=== PATIENT | female | born 1935 | race Caucasian/White ===

== ENCOUNTER 2017-04-23 12:11 | Outpatient (CLI) | payer MEDICARE, OTHER ==
--- NOTE | 2017-04-23 13:33 | CT ---
CT ANGIOGRAM THORAX WITH IV CONTRAST AND 3D RECONSTRUCTIONS: DATE: 04/23/17. HISTORY: Giant cell arteritis. Evaluate for aneurysm. COMPARISON: None available. FINDINGS: There is atherosclerotic plaque seen within the coronary arteries as well as involving the thoracic a deloris and origin of the great vessels. The thoracic aorta is normal in caliber without evidence of an aortic dissection. There is a normal arrangement of the great vessels at the aortic arch with mild atherosclerotic calcifications involving the origin and proximal left subclavian artery. The visuali zed proximal abdominal aorta is normal in caliber. There is at least mild narrowing involving the or igin of the right renal artery as well as proximal left renal artery due to calcified atherosclerotic plaque. The heart is mildly enlarged. There is dependent atelectasis bilaterally. Lungs are otherwise clear. There is no evidence of lymphadenopathy. Post cholecystectomy changes are seen. The liver, spleen, pancreas, and bilateral adrenal glands demonstrate a normal CT appearance for ronda rial phase of imaging. A few tiny subcentimeter too small to characterize hypodense lesions are seen in the superior pole of each kidney which are difficult to further characterize. Degenerative changes are seen throughout the thoracic spine. IMPRESSION: 1. Atherosclerotic calcifications and plaque within the thoracic aorta, but no thoracic aortic aneur ysm or dissection is seen. There is a normal arrangement of the great vessels at the aortic arch wit h mild atherosclerotic narrowing involving the origin and proximal left subclavian artery. 2. Mild cardiomegaly. 3. No CT evidence of a pulmonary embolus. POS: [facility]
[2017-04-23] MEDS ORDERED: Iopamidol 370 76% 100 ML VIAL ONE (16:42)
== END 2017-04-23 12:12 | disposition home or self-care (01) ==
LOC: CT 12:11
PROVIDERS: ATTEND Internal Medicine Cardiovascular Disease
DX: M31.6 Other giant cell arteritis (principal); I51.7 Cardiomegaly; I70.0 Atherosclerosis of aorta
CPT/HCPCS: 71275

== ENCOUNTER 2017-10-25 16:02 | Outpatient (CLI) | payer MEDICARE, OTHER | END 2017-10-25 16:03 | disposition home or self-care (01) | LOC: BICMAMMO 16:02 | PROVIDERS: ATTEND Obstetrics & Gynecology | DX: Z12.31 Encounter for screening mammogram for malignant neoplasm of breast (principal) | CPT/HCPCS: 77063; 77067 ==

== ENCOUNTER 2018-03-15 12:03 | Outpatient (CLI) | payer MEDICARE, OTHER ==
--- NOTE | 2018-03-15 13:50 | RAD ---
CERVICAL SPINE EIGHT VIEWS: 03/15/2018 HISTORY: Degenerative cervical spinal stenosis. FINDINGS: C1 to the cervicothoracic junction is seen on the flexion and extension views of the lumbar spine. T here are prominent degenerative changes at the C5-C6 and to a lesser degree the C6-C7 levels with susie rowing of the intervertebral disk spaces and osteophyte formation. There is mild anterolisthesis of C4 on C5, measuring approximately 3 mm on neutral and flexion views. However, the degree of anteroli sthesis does appear to improve on extension, measuring approximately 1 to 2 mm. There does appear to be narrowing of the left neural foramen, at the C6-C7 level, on the left, noted on the oblique views , narrow due to bony encroachment. Vascular calcifications are seen in the thoracic aorta. Portions of the odontoid are incompletely im aged but appear to have a normal appearance on lateral views. Prevertebral soft tissues are within normal limits. Vascular calcifications overly the left aspect of the neck. IMPRESSION: Degenerative changes in the cervical spine, as described above. There is mild anterolisthesis of C4 on C5, which does appear to mildly correct on the flexion compared to extension views. POS: [facility]
--- NOTE | 2018-03-15 14:13 | MRI ---
MRI OF THE LUMBAR SPINE WITHOUT CONTRAST: Comparison: None. History: Lumbar neurogenic claudication with low back pain and bilateral buttock pain for years. Technique: Multiplanar, multisequence MR images were obtained of the lumbar spine without contrast. FINDINGS: Generalized disc desiccation is seen. Vertebral bodies demonstrate normal height without fracture or subluxation. The conus medullaris terminates normally at T12-L1. There are T2 foci in the bilateral k idneys which represent cysts. The other prevertebral and spinal soft tissues are unremarkable. T12-L1: A minimal generalized disc bulge is seen. No posterior facet arthrosis. No neural foraminal o r central canal stenosis. L1-2: A moderate disc osteophyte complex is seen. Mild bilateral posterior facet arthrosis. Mild cent ral canal stenosis. Moderate left and mild right neural foraminal stenosis. L2-3: A small disc osteophyte complex is seen. Mild bilateral posterior facet arthrosis. No central c anal stenosis. Moderate bilateral neural foraminal stenosis. L3-4: A small disc osteophyte complex is seen. Moderate bilateral posterior facet arthrosis. No centr al canal stenosis. No neural foraminal stenosis. L4-5: A moderate disc osteophyte complex is seen. Mild bilateral posterior facet arthrosis. No centra l canal stenosis. Moderate right and moderate to severe left neural foraminal stenosis. L5-S1: A small joint concentric disc bulge is seen. Moderate bilateral posterior facet arthrosis. No central canal stenosis. Mild bilateral neural foraminal stenosis. IMPRESSION: 1. Degenerative changes of the lumbar spine as above. POS: [facility]
--- NOTE | 2018-03-15 16:01 | MRI ---
MRI OF THE CERVICAL SPINE WITHOUT CONTRAST 03/15/18 COMPARISON: None. HISTORY: Cervical stenosis. Cervical pain that radiates down the arms for weeks. TECHNIQUE: Multiplanar and multisequence MR images were obtained of the cervical spine without contrast. FINDINGS: This exam is limited secondary to motion artifact. Generalized disc desiccation is seen. There is str aightening of the normal cervical lordosis. The vertebral bodies demonstrate normal height without e vidence of subluxation. The visualized cord demonstrates a normal signal throughout. The craniocervical junction is unremark able. The prevertebral and paraspinal soft tissues are unremarkable C2-3: Unremarkable. C3-4: Unremarkable. C4-5: A small disc osteophyte complex is seen. Moderate bilateral posterior facet arthrosis. Mild gina tral canal stenosis. Moderate bilateral neural foraminal stenosis. C5-6: A moderate disc osteophyte complex is seen. Mild bilateral posterior facet arthrosis. Mild cent ral canal stenosis. Moderate bilateral neural foraminal stenosis. C6-7: A small disc osteophyte complex is seen. No posterior facet arthrosis. Mild central canal steno sis. Mild to moderate bilateral neural foraminal stenosis. C7-T1: Unremarkable. IMPRESSION: Degenerative changes of the cervical spine as above. POS: [facility]
== END 2018-03-15 12:04 | disposition home or self-care (01) ==
LOC: BICMRI 12:03
PROVIDERS: ATTEND Anesthesiology Pain Medicine
DX: M48.062 Spinal stenosis, lumbar region with neurogenic claudication (principal); M48.02 Spinal stenosis, cervical region; M47.812 Spondylosis without myelopathy or radiculopathy, cervical region; M43.12 Spondylolisthesis, cervical region; M47.816 Spondylosis without myelopathy or radiculopathy, lumbar region
CPT/HCPCS: 72052; 72141; 72148

== ENCOUNTER 2018-07-12 13:41 | Outpatient (CLI) | payer MEDICARE, OTHER ==
--- NOTE | 2018-07-12 14:51 | ULT ---
Exam: Bilateral renal ultrasound complete: HISTORY: Recurrent urinary tract infections, incontinence COMPARISON: None FINDINGS: Right kidney: 11.0 x 6.2 x 6.2 cm Left kidney: 11.2 x 5.6 x 5.1 cm No renal hydronephrosis. No evidence for abnormal perinephric process. 0.9 x 1.2 cm right upper pole renal cyst. Unremarkable appearing bladder. Several small nonspecific echogenic foci noted bilaterally without significant shadowing. IMPRESSION: Small right renal cyst. No hydronephrosis or other acute process.
== END 2018-07-12 13:42 | disposition home or self-care (01) ==
LOC: BICULT 13:41
PROVIDERS: ATTEND Urology
DX: N39.41 Urge incontinence (principal); N28.1 Cyst of kidney, acquired; Z87.440 Personal history of urinary (tract) infections
CPT/HCPCS: 76770

== ENCOUNTER 2018-12-19 13:18 | Outpatient (CLI) | payer MEDICARE, OTHER ==
--- NOTE | 2018-12-19 16:37 | MMO ---
Bilateral MAMMO Bilat Screen [facility]. CLINICAL HISTORY: Patient is 83 years old and is seen for screening. The patient has no family history of breast cancer. The patient has no personal history of cancer. VIEWS: The views performed were: bilateral craniocaudal with tomosynthesis and bilateral mediolateral oblique with tomosynthesis. FILMS COMPARED: The present examination has been compared to prior imaging studies performed at [facility] on 07/19/2014, 07/24/2015, 09/03/2016 and 10/25/2017. This study has been interpreted with the assistance of computer-aided detection. MAMMOGRAM FINDINGS: There are scattered fibroglandular densities. There are stable benign appearing calcifications seen in both breasts. There are no suspicious masses, calcifications or areas of architectural distortion. There are no suspicious masses, suspicious calcifications, or new areas of architectural distortion. IMPRESSION: THERE IS NO MAMMOGRAPHIC EVIDENCE OF MALIGNANCY. A ROUTINE FOLLOW-UP MAMMOGRAM IN 1 YEAR IS RECOMMENDED. THE RESULTS OF THIS EXAM WERE SENT TO THE PATIENT. ACR BI-RADS Category 2 - Benign finding MAMMOGRAPHY NOTE: 1. A negative mammogram report should not delay a biopsy if a dominant of clinically suspicious mass is present. 2. Approximately 10% to 15% of breast cancers are not detected by mammography. 3. Adenosis and dense breasts may obscure an underlying neoplasm. Reported by: AMRIT HORAN MD Electonically Signed: [id number]
== END 2018-12-19 13:19 | disposition home or self-care (01) ==
LOC: BICMAMMO 13:18
DX: Z12.31 Encounter for screening mammogram for malignant neoplasm of breast (principal)
CPT/HCPCS: 77063; 77067

== ENCOUNTER 2020-06-03 16:33 | Inpatient (IN) | payer MEDICARE, OTHER ==
[~2020-06-03 16:33] MED LIST: Iopamidol-370 76% 500 ML 1 ML ONE
[2020-06-03 17:27] LABS: INR-International Normal Ratio 1.2; PTT 31.2 sec (22.9-36.1); Prothrombin Time 15.5 sec (12.0-14.7)
[2020-06-03 17:36] LABS: ALT (SGPT) 25 U/L (8-55); AST (SGOT) 27 U/L (5-34); Albumin 3.5 g/dL (3.4-4.8); Alkaline Phosphatase 87 U/L (40-110); Anion Gap 15 mmol/L (10-20); BUN (Urea Nitrogen) 14 mg/dL (9.8-20.1); Bilirubin, Total 0.6 mg/dL (0.2-1.2); Calc. Creatinine Clearance 0 mL/min (70-130); Calcium 9.4 mg/dL (7.8-10.44); Carbon Dioxide 25 mmol/L (23-31); Chloride 101 mmol/L (98-107); Globulin 4.3 g/dL (2.4-3.5); Glucose 143 mg/dL (83-110); Potassium 4.6 mmol/L (3.5-5.1); Protein, Total 7.8 g/dL (5.8-8.1); Sodium 136 mmol/L (136-145)
[2020-06-03 17:43] LABS: Anisocytosis SLIGHT = 6-15 cells (100X) (0-5/hpf); Band 14 % (5-11); Hemoglobin 12.2 g/dL (12.0-16.0); Large Platelets SLIGHT; Lymphocytes 11 % (21-51); MDiff Complete? YES; Mean Corpuscular HGB CONC 32.3 g/dL (32.0-36.0); Mean Corpuscular Hemoglobin 30.5 pg (27.0-31.0); Mean Corpuscular Volume 94.3 fL (78.0-98.0); Mean Platelet Volume 10.8 fL (7.4-10.4); Monocytes 5 % (0-10); Myelocyte 8 % (0-0); Neutrophil 59 % (42-75); Platelet Count 127 thou/uL (130-400); Platelet Morphology Comment Appears Decreased; RBC Distribution Width 14.2 % (11.5-14.5); Reactive Lymphocytes 3 % (0-10); Red Blood Cell (RBC) Count 4.01 mill/uL (4.20-5.40); White Blood Cell (WBC) Count 22.9 thou/uL (4.8-10.8)
[2020-06-03] MEDS ORDERED: cefTRIAXone\\ROCEPHIN 2 GM VIAL ONE (18:00)
[2020-06-03 18:07] LABS: Squamous Epithelial None Seen HPF (0-3)
[2020-06-03 18:19] LABS: Bacteria/HPF 1+ HPF (None Seen); Bilirubin Unable to Interpret (Negative); Clarity CLEAR (Clear); Glucose, Urine (Dipstick) Unable to Interpret mg/dL (Negative); Ketone, Urine Unable to Interpret mg/dL (Negative); Leukocyte Unable to Interpret Leu/uL (Negative); Nitrite Unable to Interpret (Negative); Protein, Urine (Dipstick) Unable to Interpret mg/dL (Neg-Trace); Specific Gravity, Urine 1.011 (1.002-1.036); Urobilinogen UNABLE TO INTERPRET mg/dL (Less than 2)
[2020-06-03 18:20] LABS: Blood, Urine Unable to Interpret (Negative)
[2020-06-03] MEDS ORDERED: Acetaminophen 325 MG TAB PO PRN (20:24)
[2020-06-03] MEDS ORDERED: Ondansetron PF 4 MG/2 ML Vial IVP PRN ×2 (20:24→21:51)
[2020-06-03] MEDS ORDERED: Ondansetron ODT 4 MG TAB PO PRN ×2 (20:24→21:50)
[2020-06-03] MEDS ORDERED: Sodium Chloride 0.9% 1,000 ML IV SCH (20:30)
[2020-06-03] MEDS ORDERED: Hydrocortisone Sod Succ/PF 100 mg/2 ml Vial IVP SCH ×2 (20:45→22:00)
--- NOTE | 2020-06-03 20:50 | PDOC.HHP ---
Hospitalist HPI Dysuria, weakness History of Present Illness: This is an 84-year-old female patient with a history of hypertension, giant cell arteritis on steroids, depression who presents with progressive weakness and dysuria. Patient has recent memory issuesher son provided most of the history. Of note patient's about 6 months ago and patient has been depressed according to his son. She seems to have lost memory of the event and states that she lives with her . She was earlier on diagnosed with UTI and has been started on ciprofloxacin by her primary care physician for 4 days however she still remains weak if no significant improvement in her symptoms. Son brought her in for further management. She notes having dysuria frequency and had high temperature of 103 at home. At presentation her blood pressure was 149/82, pulse 99, respiratory rate 24, temperature 97.5 and saturating 93 on room air. Labs showed a WBC of 22.9 with 14 bands, hemoglobin of 12.2 and platelets 127. Chemistry generally unremarkable besides glucose of 143. Urine showed 4-6 red blood cells 4-6 white blood cells and 1+ bacteria. CT abdomen showed no acute pathology thought process. No lung consolidation was noted on limited lung view. She was assessed to have incompletely treated UTI and was started on ceftr iaxone. Also received 1 L normal saline and Tylenol. Hospitalist team was consulted for admission Allergies/Adverse Reactions: Allergy/AdvReac Type Severity Reaction Status Date / Time codeine Allergy Nausea Verified 06/24/19 03:27 ondansetron [From Zofran] Allergy hallucinati Verified 06/03/20 21:41 ons Home Medications: Medication Instructions Recorded Confirmed Type Carvedilol [Coreg] 12.5 mg PO DAILY 08/05/17 06/04/20 History Celecoxib [Celebrex] 200 mg PO DAILY 08/05/17 06/04/20 History metFORMIN [Glucophage] 500 mg PO DAILY 08/05/17 06/04/20 History traZODone HCl [Trazodone HCl] 100 mg PO HS PRN 08/05/17 06/04/20 History Aspirin [Ani Chewable Aspirin] 1 tab PO DAILY 06/04/20 06/04/20 History Escitalopram Oxalate [Lexapro] 1 tab PO DAILY 06/04/20 06/04/20 History Ezetimibe [Zetia] 1 tab PO DAILY 06/04/20 06/04/20 History Gabapentin 1 tab PO HS 06/04/20 06/04/20 History Lisinopril [Zestril] 1 tab PO DAILY 06/04/20 06/04/20 History Loteprednol Etabonate [Lotemax 1 drop EA EYE 06/04/20 History 0.5% Ophth Gel] Pantoprazole [Protonix] 1 tab PO DAILY 06/04/20 06/04/20 History QUEtiapine Fumarate [SEROquel] 1 tab PO HS 06/04/20 06/04/20 History Restasis [Restasis Ophth Drops] 06/04/20 History Rosuvastatin [Crestor] 1 tab PO DAILY 06/04/20 06/04/20 History Solifenacin Succinate [VESIcare] 0.5 tab PO BID 06/04/20 06/04/20 History Timolol Maleate [Timolol Maleate 1 drop EA EYE BID 06/04/20 06/04/20 History 0.5% Ophth SolN] Past History: Past medical history: Giant cell arteritis on chronic steroid, osteoarthritis, depression Past surgical history: Bilateral salpingo-oophorectomy, bilateral knee replacement Family history: None of significance. Social history: Lives with son. Occasional drinks, never smoker. No history of illicit drug use. Currently . Walks with cane. Hospitalist HPI ROS Constitutional: reports: fever, weakness, malaise. denies: chills, sweats Respiratory: denies: cough, shortness of breath, hemoptysis, SOB with excertion Cardiovascular: denies: chest pain, palpitations, orthopnea, paroxysmal noc. dyspnea Gastrointestinal: reports: nausea, vomiting, constipation. denies: abdominal pain, diarrhea Musculoskeletal: reports: back pain. denies: neck pain, shoulder pain, arm pain, hand pain, leg pain Neurological: denies: weakness, numbness, incoordination, change in speech All other systems reviewed; all pertinent +/- noted in HPI/Subj Hospitalist Exam General Appearance: awake alert General - other findings: No acute distress. Mildly confused sometimes Eye: PERRL, anicteric sclera Heart: RRR, no murmur, no gallops, no rubs Respiratory: CTAB, no wheezes, no rales, no ronchi Gastrointestinal: soft, non-tender, non-distended, normal bowel sounds Extremities: no cyanosis, no clubbing, no edema Neurological: cranial nerve grossly intact, no weakness, no focal deficits Musculoskeletal: normal tone, normal strength Psychiatric: normal affect, normal behavior, A&O x 3 Psychiatric - other findings: Patient said she lived with her however he is . Hospitalist Results Result Diagrams: 06/03/20 16:51 06/03/20 16:51 Lab results: Laboratory Last Values WBC 22.9 thou/uL (4.8-10.8) H 06/03/20 16:51 RBC 4.01 mill/uL (4.20-5.40) L 06/03/20 16:51 Hgb 12.2 g/dL (12.0-16.0) 06/03/20 16:51 Hct 37.8 % (36.0-47.0) 06/03/20 16:51 MCV 94.3 fL (78.0-98.0) 06/03/20 16:51 MCH 30.5 pg (27.0-31.0) 06/03/20 16:51 MCHC 32.3 g/dL (32.0-36.0) 06/03/20 16:51 RDW 14.2 % (11.5-14.5) 06/03/20 16:51 Plt Count 127 thou/uL (130-400) L 06/03/20 16:51 MPV 10.8 fL (7.4-10.4) H 06/03/20 16:51 Neutrophils % (Manual) 59 % (42-75) 06/03/20 16:51 Band Neuts % (Manual) 14 % (5-11) H 06/03/20 16:51 Lymphocytes % (Manual) 11 % (21-51) L 06/03/20 16:51 Reactive Lymphs % 3 % (0-10) 06/03/20 16:51 Monocytes % (Manual) 5 % (0-10) 06/03/20 16:51 Myelocytes % 8 % (0-0) H 06/03/20 16:51 Large Platelets SLIGHT 06/03/20 16:51 Plt Morphology Comment Appears Decreased L 06/03/20 16:51 Anisocytosis SLIGHT = 6-15 cells (100X) (0-5/hpf) 06/03/20 16:51 PT 15.5 sec (12.0-14.7) H 06/03/20 16:51 INR 1.2 06/03/20 16:51 APTT 31.2 sec (22.9-36.1) 06/03/20 16:51 Sodium 136 mmol/L (136-145) 06/03/20 16:51 Potassium 4.6 mmol/L (3.5-5.1) 06/03/20 16:51 Chloride 101 mmol/L (98-107) 06/03/20 16:51 Carbon Dioxide 25 mmol/L (23-31) 06/03/20 16:51 Anion Gap 15 mmol/L (10-20) 06/03/20 16:51 BUN 14 mg/dL (9.8-20.1) 06/03/20 16:51 Creatinine 1.09 mg/dL (0.6-1.1) 06/03/20 16:51 Estimated GFR (MDRD) 48 06/03/20 16:51 Glucose 143 mg/dL (83-110) H 06/03/20 16:51 Lactic Acid 1.7 mmol/L (0.5-2.2) 06/03/20 16:51 Calcium 9.4 mg/dL (7.8-10.44) 06/03/20 16:51 Total Bilirubin 0.6 mg/dL (0.2-1.2) 06/03/20 16:51 AST 27 U/L (5-34) 06/03/20 16:51 ALT 25 U/L (8-55) 06/03/20 16:51 Alkaline Phosphatase 87 U/L (40-110) 06/03/20 16:51 Serum Total Protein 7.8 g/dL (5.8-8.1) 06/03/20 16:51 Albumin 3.5 g/dL (3.4-4.8) 06/03/20 16:51 Globulin 4.3 g/dL (2.4-3.5) H 06/03/20 16:51 Albumin/Globulin Ratio 0.8 g/dL (1.2-2.2) L 06/03/20 16:51 Urine Color [place] (Yellow) A 06/03/20 17:47 Urine Clarity CLEAR (Clear) 06/03/20 17:47 Urine pH 6.0 (5.0-9.0) 06/03/20 17:47 Ur Specific [place] 1.011 (1.002-1.036) 06/03/20 17:47 Urine Protein Unable to Interpret mg/dL (Neg-Trace) 06/03/20 17:47 Urine Glucose (UA) Unable to Interpret mg/dL (Negative) 06/03/20 17:47 Urine Ketones Unable to Interpret mg/dL (Negative) 06/03/20 17:47 Urine Blood Unable to Interpret (Negative) 06/03/20 17:47 Urine Nitrite Unable to Interpret (Negative) 06/03/20 17:47 Urine Bilirubin Unable to Interpret (Negative) 06/03/20 17:47 Prot Sulfosalicylic Acd Negative mg/dL (Neg-Trace) 06/03/20 17:47 Urine Urobilinogen UNABLE TO INTERPRET mg/dL (Less than 2) 06/03/20 17:47 Ur Leukocyte Esterase Unable to Interpret Bharti/uL (Negative) 06/03/20 17:47 Urine RBC 4-6 HPF (0-3) A 06/03/20 17:47 Urine WBC 4-6 HPF (0-3) A 06/03/20 17:47 Ur Squamous Epith Cells None Seen HPF (0-3) 06/03/20 17:47 Urine Bacteria 1+ HPF (None Seen) A 06/03/20 17:47 Hospitalist H&P A/P Plan: This is an 84-year-old female patient with a history of giant cell arteritis, hypertension and depression who presents with partially treated UTI. She will be admitted for antibiotic treatment for possible urosepsis. Sepsis Possible from partially treated UTI No other source apparent at the momentCT abdomen negative Limited lung assessment on CT abdomen did not show any infiltrateswe will order chest x-ray for full lung assessment. She received 1 L normal saline We will continue on 100 mils per hour Ceftriaxonewe will continue Acute was within normal limits. Follow-up on blood culture Partially treated UTI We will continue on treatment on ceftriaxone Urine does not look that infected however still follow-up on cultures. Follow-up on blood cultures as well. Adrenal insufficiency Patient on chronic steroids hydrocortisone 30 mg daily We will start stress dose steroids for mild to moderate medical stress at 50mg twice daily hydrocortisoneto adjust as needed. Continue monitoring. History of giant cell arteritis On steroids Treat as above Continue monitoring. Hypertension BP stable Resume home meds once verified Depression Symptoms started after her about 6 months ago She is on Lexaproverify and restart VT prophylaxisLovenox CODE STATUSfull code
[2020-06-03] MEDS ORDERED: Acetaminophen 325 MG TAB ONE (20:51)
--- NOTE | 2020-06-03 21:24 | CT ---
CT ABDOMEN WITH CONTRAST CT PELVIS WITH CONTRAST: DATE: 06-03-2020 HISTORY: 84-year-old female with acute right flank pain and dysuria with fever. COMPARISON: None TECHNIQUE: IV injection of iodinated contrast media: Administered Oral contrast media: Not administered FINDINGS: There is no hydronephrosis bilaterally. Bilateral nephrograms are symmetrical, with no convincing liz dence of pyelonephritis. Small, approximately 1 cm, focal hypodensity in the right renal upper pole, similar one at right renal lower pole, and similar one at left renal upper pole, parenchyma, too smal l to definitely characterize, but likely cysts. A few additional tiny focal hypodensities a few mm in size each, in the bilateral renal parenchymal, too small to characterize. No perirenal abscess. No consolidation at lung bases. No pleural effusion. No ascites, pneumoperitoneum, small bowel dilation, or colonic diverticulitis. Normal appendix. Incompletely distended urinary bladder. Absent uterus. Extensive atherosclerosis without aneurysm of abdominal aorta. No acute pathology of pancreas. Normal liver, spleen, adrenals. Clips in the gallbladder fossa. Multilevel moderate to severe degenerative disc changes. Vacuum joint phenomenon and sclerosis of bilateral SI joints. IMPRESSION: 1. No compelling evidence of acute intraabdominal or intrapelvic pathology. 2. Status post cholecystectomy and hysterectomy. 3. Lumbar spondylosis. 4. Degenerative changes at bilateral sacroiliac joints. SEVERO Julian POS: [facility]
[2020-06-03 21:46] VITALS: BMI 35.0
[2020-06-04] MEDS ORDERED: Polyethylene Glycol 3350 17 GM Packet PO PRN (00:25)
[2020-06-04] MEDS ORDERED: Sodium Chloride 0.9% 1,000 ML IV SCH (01:15)
[2020-06-04 06:44] LABS: Hemoglobin 11.5 g/dL (12.0-16.0); Mean Corpuscular HGB CONC 32.4 g/dL (32.0-36.0); Mean Corpuscular Hemoglobin 31.1 pg (27.0-31.0); Mean Platelet Volume 10.3 fL (7.4-10.4); Platelet Count 130 thou/uL (130-400); RBC Distribution Width 14.2 % (11.5-14.5); Red Blood Cell (RBC) Count 3.69 mill/uL (4.20-5.40); White Blood Cell (WBC) Count 19.8 thou/uL (4.8-10.8)
[2020-06-04 06:59] LABS: Anion Gap 13 mmol/L (10-20); BUN (Urea Nitrogen) 11 mg/dL (9.8-20.1); Calc. Creatinine Clearance 56 mL/min (70-130); Calcium 8.7 mg/dL (7.8-10.44); Carbon Dioxide 22 mmol/L (23-31); Chloride 106 mmol/L (98-107); Glucose 167 mg/dL (83-110); Sodium 137 mmol/L (136-145)
[2020-06-04 07:44] LABS: Band 13 % (5-11); Large Platelets SLIGHT; Lymphocytes 11 % (21-51); MDiff Complete? YES; Metamyelocyte 2 % (0-0); Monocytes 4 % (0-10); Myelocyte 6 % (0-0); Neutrophil 64 % (42-75); Ovalocytes SLIGHT = 2-5 cells (100X) (0-1/hpf); Platelet Morphology Comment Appears Adequate; Polychromasia SLIGHT = 2-3 cells (100X) (0-2/hpf)
--- NOTE | 2020-06-04 07:50 | RAD ---
Portable frontal chest radiograph: 06/04/2020 COMPARISON: 09/03/2016 HISTORY: Fever FINDINGS: There is mild atherosclerotic calcification of the aortic arch. There is no pneumothorax or pleural fluid and no focal consolidation or alveolar edema. IMPRESSION: No focal consolidation or alveolar edema.
[2020-06-04] MEDS ORDERED: FLU VACC QS2020-21(65YR UP)/PF 240 MCG/0.7 ML SYRINGE IM ONE (09:00)
[2020-06-04] MEDS ORDERED: Hydrocortisone Sod Succ/PF 100 mg/2 ml Vial IVP SCH (09:00)
[2020-06-04] MEDS ORDERED: Enoxaparin Sodium 40 MG/0.4 ML SYRINGE SC SCH (09:00)
[2020-06-04 11:35] VITALS: BP 142/88; TEMP 97.9
--- NOTE | 2020-06-04 12:17 | DIS ---
DATE OF ADMISSION: 06/03/2020 DATE OF DISCHARGE: 06/04/2020 DISCHARGE DIAGNOSES: 1. Urinary tract infection, organism not identified. 2. Giant cell arteritis with chronic hydrocortisone therapy. 3. Adrenal insufficiency, mild. 4. Hypertension, stable. 5. Depression, stable. 6. Deconditioning. CONSULTATIONS: None. PERTINENT LABORATORY AND X-RAY FINDINGS: Lactic acid level 1.7. CBC showed a white blood cell count ranging between 19.8 to 22.9. Urine culture dated 06/03/2020, pending. CT of the abdomen and pelvis dated 06/03/2020 showed no acute intraabdominal process. Portable chest x-ray dated 06/04/2020 showed no acute process. HOSPITAL COURSE: The patient was initially admitted after presenting with urinary tract infection on previous outpatient ciprofloxacin. The patient presented with generalized weakness and dysuria. The patient was noted with an elevated white blood cell count of 22.9 with bandemia and placed on IV Rocephin and intravenous normal saline. The patient was noted afebrile throughout the hospital course and given a one time stress dose of hydrocortisone due to chronic hydrocortisone therapy for giant cell arteritis. The patient remained clinically stable during the hospital course with stable vital signs. The patient clinically improved with supportive management and was ready for discharge on 06/04/2020. Urine culture pending at the time of discharge with plans for call back to the patient when these results are available. I have examined the patient at the time of discharge and discussed followup instructions with the patient and her son. Both verbalized understanding and agreement and ready for discharge on 06/04/2020. DISCHARGE MEDICATIONS: 1. Levaquin 750 mg one tablet p.o. daily x7 days. 2. Enteric-coated aspirin 81 mg p.o. daily. 3. Celebrex 200 mg p.o. daily. 4. Coreg 12.5 mg p.o. daily. 5. Crestor 10 mg p.o. daily. 6. Gabapentin 100 mg p.o. q.h.s. 7. Metformin 500 mg p.o. daily. 8. Lexapro 10 mg p.o. daily. 9. Lotemax 0.5% one drop to each eye daily. 10. Protonix 40 mg p.o. daily. 11. Restasis 0.4 mL to each eye daily p.r.n. 12. Timolol maleate 0.5% ophthalmic solution one drop to each eye b.i.d. 13. Trazodone 100 mg p.o. q.h.s. 14. VESIcare 2.5 mg p.o. b.i.d. 15. Lisinopril 5 mg p.o. daily. 16. Zetia 10 mg p.o. daily. FOLLOWUP: The patient may follow up with her primary care provider, Dr. Alverto Padilla. CONDITION ON DISCHARGE: Stable. ACTIVITY: Ad-aura. DIET: Heart healthy. CODE STATUS: Full. DISPOSITION: To home on 06/04/2020. TIME SPENT: Total time preparing and coordinating discharge 32 minutes. Job ID: [id number]
[2020-06-04] MEDS ORDERED: cefTRIAXone\\ROCEPHIN 1 GM in Sodium Chloride 0.9% 100 ML IVPB SCH (21:00)
== END 2020-06-04 11:17 | disposition home or self-care (01) | DRG 872 ==
LOC: ERS 16:33 → T4-B 20:17
PROVIDERS: ADMIT Student in an Organized Health Care Education/Training Program; ATTEND Family Medicine
DX: A41.9 Sepsis, unspecified organism (principal); N39.0 Urinary tract infection, site not specified; E27.40 Unspecified adrenocortical insufficiency; I10 Essential (primary) hypertension; M31.6 Other giant cell arteritis; F32.9 Major depressive disorder, single episode, unspecified; Z96.653 Presence of artificial knee joint, bilateral; R53.81 Other malaise; Z88.5 Allergy status to narcotic agent; Z88.8 Allergy status to other drugs, medicaments and biological substances; Z79.84 Long term (current) use of oral hypoglycemic drugs; Z79.82 Long term (current) use of aspirin; Z79.899 Other long term (current) drug therapy; Z90.722 Acquired absence of ovaries, bilateral
CPT/HCPCS: 36415; 51701; 71045; 74177; 80048; 80053; 81003; 81015; 83605; 85025; 85610; 85730; 87040; 87086; 94760; 96365; J0696; J1720; Q9967

== ENCOUNTER 2022-01-12 23:50 | Inpatient (IN) | payer MEDICARE, OTHER ==
[2022-01-13 00:52] LABS: Hemoglobin 11.5 g/dL (12.0-16.0); Mean Corpuscular HGB CONC 31.2 g/dL (32.0-36.0); Mean Corpuscular Hemoglobin 28.5 pg (27.0-31.0); Mean Corpuscular Volume 91.3 fL (78.0-98.0); RBC Distribution Width 14.6 % (11.5-14.5); Red Blood Cell (RBC) Count 4.03 mill/uL (4.20-5.40); White Blood Cell (WBC) Count 11.4 thou/uL (4.8-10.8)
[2022-01-13 01:05] LABS: Mean Platelet Volume 11.1 fL (7.4-10.4); Platelet Count 100 thou/uL (130-400)
[2022-01-13 01:06] LABS: Band 5 % (5-11); Eosinophils 1 % (0-10); Large Platelets SLIGHT; Lymphocytes 19 % (21-51); MDiff Complete? YES; Monocytes 13 % (0-10); Myelocyte 4 % (0-0); Neutrophil 58 % (42-75); Platelet Morphology Comment Appears Decreased; Tear Drops SLIGHT = 2-5 cells (100X) (0-1/hpf)
[2022-01-13 01:25] LABS: Bacteria/HPF None Seen HPF (None Seen); Blood, Urine Negative (Negative); Clarity Clear (Clear); Glucose, Urine (Dipstick) Normal (Negative); Ketone, Urine Negative (Negative); Leukocyte Negative Leu/uL (Negative); Nitrite Unable to Interpret (Negative); Protein, Urine (Dipstick) 20 mg/dL (Neg-Trace); RBC/HPF 0-3 HPF (0-3); Specific Gravity, Urine 1.018 (1.002-1.036); Squamous Epithelial 0-3 HPF (0-3); Urobilinogen UNABLE TO INTERPRET mg/dL (Less than 2); pH, Urine 5.5 (5.0-9.0)
[2022-01-13 01:26] LABS: Bilirubin Unable to Interpret (Negative)
[2022-01-13 01:35] LABS: ALT (SGPT) 16 U/L (8-55); AST (SGOT) 29 U/L (5-34); Albumin 3.7 g/dL (3.4-4.8); Alkaline Phosphatase 46 U/L (40-110); Anion Gap 17 mmol/L (10-20); BUN (Urea Nitrogen) 12 mg/dL (9.8-20.1); Bilirubin, Total 0.4 mg/dL (0.2-1.2); Calc. Creatinine Clearance 0 mL/min (70-130); Calcium 9.4 mg/dL (7.8-10.44); Carbon Dioxide 23 mmol/L (23-31); Chloride 104 mmol/L (98-107); Estimated GFR 37; Globulin 4.2 g/dL (2.4-3.5); Glucose 151 mg/dL (83-110); Potassium 4.5 mmol/L (3.5-5.1); Protein, Total 7.9 g/dL (5.8-8.1); Sodium 139 mmol/L (136-145)
[2022-01-13 02:25] LABS: SARS-CoV-2 NAA Rapid Test Not Detected (NotDetected)
[2022-01-13] MEDS ORDERED: traZODone HCl 50 MG TAB PO PRN (03:07)
[2022-01-13] MEDS ORDERED: Senokot S 8.6-50 MG TAB PO PRN (03:08)
[2022-01-13] MEDS ORDERED: Ondansetron PF 4 MG/2 ML Vial IVP PRN (03:08)
[2022-01-13] MEDS ORDERED: Ondansetron ODT 4 MG TAB PO PRN (03:08)
[2022-01-13] MEDS ORDERED: Calcium Carbonate 500 MG ChewTAB PO PRN (03:08)
[2022-01-13] MEDS ORDERED: Benzonatate 100 MG CAP PO PRN (03:11)
[2022-01-13] MEDS ORDERED: cefTRIAXone\\ROCEPHIN 2 GM VIAL ONE (03:47)
[2022-01-13] MEDS ORDERED: Azithromycin 500 MG VIAL ONE (03:50)
[2022-01-13] MEDS ORDERED: Lorazepam 0.5 MG TAB PO PRN (04:21)
[2022-01-13] MEDS: guaiFENesin/Codeine 200 mg/20 mg 10 ml Cup PO PRN ×2 (05:08→15:42)
[2022-01-13] MEDS: Acetaminophen 325 MG TAB PO PRN (05:08)
[2022-01-13] MEDS ORDERED: Benzonatate 100 MG CAP PO SCH (05:15)
[2022-01-13] MEDS ORDERED: methylPREDNISolone Sod Succ/PF 125 MG/2 ML VIAL IVP SCH (05:15)
[2022-01-13 05:22] VITALS: BMI 40.2
[2022-01-13] MEDS: Sodium Chloride 0.9% 1,000 ML IV SCH ×2 (05:29→14:54)
[2022-01-13] MEDS: methylPREDNISolone Sod Succ 40 MG VIAL IVP SCH ×3 (08:35→20:03)
[2022-01-13] MEDS: Aspirin Chewable 81 MG TAB PO SCH (08:35)
[2022-01-13] MEDS: Benzonatate 100 MG CAP PO SCH ×3 (08:36→20:03)
[2022-01-13] MEDS: Trospium 20 MG TAB PO SCH (08:37)
[2022-01-13] MEDS: cefTRIAXone\\ROCEPHIN 1 GM in Sodium Chloride 0.9% 100 ML IVPB SCH (08:37)
[2022-01-13] MEDS: cycloSPORINE 0.05% Ophthalmic Droperette EA EYE SCH ×2 (08:52→20:05)
[2022-01-13] MEDS: Timolol 0.5% Ophth Soln 5 ml Bottle EA EYE SCH ×2 (08:54→20:04)
[2022-01-13] MEDS: Azithromycin 500 MG in Sodium Chloride 0.9% 250 ML 250 ML IVPB SCH (10:17)
[2022-01-13] MEDS: Heparin 5,000 UNITS/ML VIAL SC SCH ×3 (10:18→20:03)
[2022-01-13] MEDS: Gabapentin 100 MG CAP PO SCH (20:04)
[2022-01-14] MEDS: methylPREDNISolone Sod Succ 40 MG VIAL IVP SCH ×4 (02:28→20:15)
[2022-01-14] MEDS: Benzonatate 100 MG CAP PO SCH ×3 (08:35→20:12)
[2022-01-14] MEDS: Trospium 20 MG TAB PO SCH (08:35)
[2022-01-14] MEDS: Azithromycin 500 MG in Sodium Chloride 0.9% 250 ML 250 ML IVPB SCH (08:36)
[2022-01-14] MEDS: Aspirin Chewable 81 MG TAB PO SCH (08:36)
[2022-01-14] MEDS: Carvedilol 6.25 MG TAB PO SCH ×2 (08:36→20:12)
[2022-01-14] MEDS: cefTRIAXone\\ROCEPHIN 1 GM in Sodium Chloride 0.9% 100 ML IVPB SCH (08:36)
[2022-01-14] MEDS: Heparin 5,000 UNITS/ML VIAL SC SCH (08:36)
[2022-01-14] MEDS: cycloSPORINE 0.05% Ophthalmic Droperette EA EYE SCH ×2 (08:37→20:25)
[2022-01-14] MEDS: Timolol 0.5% Ophth Soln 5 ml Bottle EA EYE SCH ×2 (08:37→20:25)
[2022-01-14] MEDS: Sodium Chloride 0.9% 1,000 ML IV SCH (11:49)
[2022-01-14] MEDS: guaiFENesin/Codeine 200 mg/20 mg 10 ml Cup PO PRN ×2 (11:49→20:14)
[2022-01-14 12:21] LABS: Legionella Urinary Ag Negative (Negative); Strep pneumo Urine Ag NEGATIVE (NEGATIVE)
[2022-01-14] MEDS: Gabapentin 100 MG CAP PO SCH (20:13)
[2022-01-14] MEDS: Acetaminophen 325 MG TAB PO PRN (20:20)
[2022-01-15] MEDS: methylPREDNISolone Sod Succ 40 MG VIAL IVP SCH ×2 (02:39→09:05)
[2022-01-15] MEDS: Sodium Chloride 0.9% 1,000 ML IV SCH (05:57)
[2022-01-15] MEDS: Azithromycin 500 MG in Sodium Chloride 0.9% 250 ML 250 ML IVPB SCH (09:04)
[2022-01-15] MEDS: Carvedilol 6.25 MG TAB PO SCH ×2 (09:06→21:19)
[2022-01-15] MEDS ORDERED: Azithromycin 250 MG TAB PO SCH (09:45)
[2022-01-15] MEDS ORDERED: predniSONE 20 MG TAB PO SCH (09:45)
[2022-01-15] MEDS: Trospium 20 MG TAB PO SCH (10:00)
[2022-01-15] MEDS: Aspirin Chewable 81 MG TAB PO SCH (10:00)
[2022-01-15] MEDS: Benzonatate 100 MG CAP PO SCH ×3 (10:01→21:15)
[2022-01-15] MEDS: cefTRIAXone\\ROCEPHIN 1 GM in Sodium Chloride 0.9% 100 ML IVPB SCH (10:01)
[2022-01-15] MEDS: guaiFENesin/Codeine 200 mg/20 mg 10 ml Cup PO PRN ×2 (10:02→18:13)
[2022-01-15] MEDS: cycloSPORINE 0.05% Ophthalmic Droperette EA EYE SCH ×2 (10:03→21:20)
[2022-01-15] MEDS: Timolol 0.5% Ophth Soln 5 ml Bottle EA EYE SCH ×2 (10:03→21:20)
[2022-01-15] MEDS ORDERED: Lidocaine-Prilocaine 2.5% Cream 5 GM TUBE TOP SCH (10:22)
[2022-01-15] MEDS ORDERED: Amoxicillin/Potassium Clav 875 MG TAB PO SCH ×2 (10:26→10:45)
[2022-01-15] MEDS ORDERED: hydrOXYzine 25 MG TAB PO PRN (10:44)
[2022-01-15 11:25] LABS: Reticulocyte Count 1.7 % (0.5-1.5)
[2022-01-15 11:31] LABS: Hemoglobin 10.3 g/dL (12.0-16.0); Mean Corpuscular HGB CONC 30.6 g/dL (32.0-36.0); Mean Corpuscular Hemoglobin 28.3 pg (27.0-31.0); Mean Corpuscular Volume 92.5 fL (78.0-98.0); Mean Platelet Volume 10.9 fL (7.4-10.4); Platelet Count 87 thou/uL (130-400); RBC Distribution Width 14.6 % (11.5-14.5); Red Blood Cell (RBC) Count 3.64 mill/uL (4.20-5.40); White Blood Cell (WBC) Count 17.1 thou/uL (4.8-10.8)
[2022-01-15 12:15] LABS: Band 3 % (5-11); Lymphocytes 8 % (21-51); MDiff Complete? YES; Monocytes 6 % (0-10); Neutrophil 83 % (42-75); Platelet Morphology Comment Appears Decreased; Polychromasia SLIGHT = 2-3 cells (100X) (0-2/hpf)
[2022-01-15 12:18] LABS: INR-International Normal Ratio 1.2; Prothrombin Time 14.9 sec (12.0-14.7)
[2022-01-15 12:20] LABS: PTT 25.6 sec (22.9-36.1)
[2022-01-15 12:33] LABS: Iron Binding Capacity, Total 254 mcg/dL (265-497)
[2022-01-15 12:34] LABS: CK (CPK) 57 U/L (29-168); Iron 51 ug/dL (50-170)
[2022-01-15 12:38] LABS: ALT (SGPT) 21 U/L (8-55); AST (SGOT) 27 U/L (5-34); Albumin 3.5 g/dL (3.4-4.8); Alkaline Phosphatase 38 U/L (40-110); Anion Gap 13 mmol/L (10-20); BUN (Urea Nitrogen) 16 mg/dL (9.8-20.1); Bilirubin, Total 0.3 mg/dL (0.2-1.2); CRP (Inflammatory) 0.59 mg/dL (= or < 0.5); Calc. Creatinine Clearance 61 mL/min (70-130); Calcium 8.6 mg/dL (7.8-10.44); Carbon Dioxide 24 mmol/L (23-31); Chloride 108 mmol/L (98-107); Estimated GFR 52; Globulin 3.2 g/dL (2.4-3.5); Glucose 204 mg/dL (83-110); Iron 50 ug/dL (50-170); Iron Binding Capacity, Total 259 mcg/dL (265-497); Potassium 4.1 mmol/L (3.5-5.1); Protein, Total 6.7 g/dL (5.8-8.1); Sodium 141 mmol/L (136-145)
[2022-01-15] MEDS: Amoxicillin/Potassium Clav 875 MG TAB PO SCH (21:15)
[2022-01-15] MEDS: Gabapentin 100 MG CAP PO SCH (21:16)
[2022-01-16] MEDS ORDERED: predniSONE 20 MG TAB PO SCH (08:00)
[2022-01-16] MEDS ORDERED: Azithromycin 250 MG TAB PO SCH (09:00)
[2022-01-16] MEDS ORDERED: Escitalopram Oxalate 10 mg Tablet PO SCH (09:00)
[2022-01-16] MEDS: Carvedilol 6.25 MG TAB PO SCH (09:38)
[2022-01-16] MEDS: Aspirin Chewable 81 MG TAB PO SCH (09:38)
[2022-01-16] MEDS: Benzonatate 100 MG CAP PO SCH (09:38)
[2022-01-16] MEDS: Trospium 20 MG TAB PO SCH (09:39)
[2022-01-16] MEDS: Amoxicillin/Potassium Clav 875 MG TAB PO SCH (09:39)
[2022-01-16] MEDS: Timolol 0.5% Ophth Soln 5 ml Bottle EA EYE SCH (09:39)
[2022-01-16] MEDS: cycloSPORINE 0.05% Ophthalmic Droperette EA EYE SCH (09:39)
[2022-01-16] MEDS ORDERED: Lisinopril 5 MG TAB PO SCH (10:00)
[2022-01-16 13:46] VITALS: BP 114/68; TEMP 97.9
== END 2022-01-16 14:11 | disposition home or self-care (01) | DRG 193 ==
LOC: ERS 23:50 → T4-A 01-13 03:13
PROVIDERS: ADMIT Internal Medicine; ATTEND Family Medicine
DX: J12.9 Viral pneumonia, unspecified (principal); G93.41 Metabolic encephalopathy; J96.01 Acute respiratory failure with hypoxia; E87.20 Acidosis, unspecified; N17.9 Acute kidney failure, unspecified; Z20.822 Contact with and (suspected) exposure to COVID-19; J15.9 Unspecified bacterial pneumonia; F39 Unspecified mood [affective] disorder; H40.9 Unspecified glaucoma; K21.9 Gastro-esophageal reflux disease without esophagitis; N18.32 Chronic kidney disease, stage 3b; G89.29 Other chronic pain; N32.81 Overactive bladder; D69.6 Thrombocytopenia, unspecified; I12.9 Hypertensive chronic kidney disease with stage 1 through stage 4 chronic kidney disease, or unspecified chronic kidney disease; Z79.82 Long term (current) use of aspirin; Z79.899 Other long term (current) drug therapy; E86.0 Dehydration; D63.1 Anemia in chronic kidney disease; Z86.16 Personal history of COVID-19
CPT/HCPCS: 36415; 71045; 80053; 81003; 81015; 82550; 82728; 83540; 83550; 83605; 83880; 84145; 84484; 85025; 85046; 85610; 85730; 86140; 86850; 86900; 86901; 87040; 87081; 87449; 87633; 87899; 93005; 93010; 94640; 94760; 96361; 96365; 96367; J0456; J0696; J2920; J2930; J3490; J7050; J7512; J7620